=== PATIENT | male | born 1955 | race Caucasian/White ===

== ENCOUNTER 2020-06-10 19:21 | Emergency (ER) | payer OTHER ==
[2020-06-10 19:40] VITALS: BP 139/82
[2020-06-10] MEDS ORDERED: BUFFERED LIDOCAINE 10 ML SYRINGE SUBQ STA (20:47)
[2020-06-10] MEDS ORDERED: BACITRACIN ZINC OINT 1 PACKET TOP STA (20:49)
[2020-06-10] MEDS ORDERED: TETANUS/DIPHTHERIA/PERTUSSIS 0.5 ML SYRINGE IM ONE (20:50)
--- NOTE | 2020-06-10 20:51 | ED Physician Documentation ---
History of Present Illness - Stated complaint Stated Complaint: LT HAND LAC - Chief complaint Chief Complaint: Laceration - Additonal information Additional information: 64-year-old male presents to the emergency department for a stab laceration to the palm of his left hand when attempting to cut a avocado this evening. Unknown last tetanus. He has an approximately 1 cm stab/puncture wound. Bleeding is controlled with pressure. Patient is right-hand dominant. Review of Systems Constitutional: reports: Reviewed and negative Eyes: reports: Reviewed and negative Ears: reports: Reviewed and negative Nose: reports: Reviewed and negative Throat: reports: Reviewed and negative Cardiac: reports: Reviewed and negative Respiratory: reports: Reviewed and negative GI: reports: Reviewed and negative Skin: reports: Laceration (s) (left palm) PD PAST MEDICAL HISTORY - Allergies Allergies/Adverse Reactions: Allergies Allergy/AdvReac Type Severity Reaction Status Date / Time No Known Drug Allergies Allergy Verified 06/10/20 19:40 PD ED PE EXPANDED - General General: Alert, No acute distress - Extremities Extremities: Left hand (1 cm laceration palmar side left hand through the crease just below the ring finger. 2+ radial 1+ ulnar pulse. Brisk cap refill distally. Patient able to make a full fist and extend against resistance. No evidence of tendon injury.) Results - Vitals Vitals: Vital Signs - 24 hr 06/10/20 19:37 Temperature 36.2 C L Heart Rate 65 Respiratory 16 Rate Blood Pressure 139/82 H O2 Saturation 96 Oxygen O2 Source Room air Procedures - Laceration (location) left palm Length in cm: 1 Wound type: Linear Neurovascular status: Sensory intact, Motor intact, Vascular intact Tendon involvement: Tendon intact Anesthesia: Lidocaine 1% Wound preparation: Chlorhexadine, Irrigated copiously NS Skin layer closure: Size #-0 - enter number (4), Sutures - enter # (2) Other: Patient tolerated well, No complications, Neurovascular intact, Tetanus UTD PD MEDICAL DECISION MAKING - ED course Complexity details: d/w patient ED course: 64-year-old male presents emergency department for evaluation of a left palm laceration sustained when he was cutting a avocado earlier this evening. Tetanus was updated today. Wound easily closed with 2 sutures. no e/o tendon injury on exam. Routine wound care and return precautions discussed. Departure - Departure Disposition: 01 Home, Self Care Clinical Impression: Laceration of left palm Qualifiers: Encounter type: initial encounter Qualified Code(s): S61.412A - Laceration without foreign body of left hand, initial encounter Condition: Stable Record reviewed to determine appropriate education?: Yes Instructions: ED Laceration Hand Comments: Your sutures should be removed in 7 to 10 days. In 24 hours you may remove the dressing wash gently with warm soap and water, apply any antibiotic ointment and a simple bandage. Your tetanus is up-to-date. Please attempt to keep your wound clean and dry. Do not submerge it in dirty dishwater or bath water. Return to the emergency department if you have any concerns of infection such as redness, fevers milky drainage increased pain.
== END 2020-06-10 21:13 | disposition home or self-care (01) ==
LOC: ED 19:21
DX: S61.412A Laceration without foreign body of left hand, initial encounter (principal); W26.0XXA Contact with knife, initial encounter; Y93.G1 Activity, food preparation and clean up; Z23 Encounter for immunization
CPT/HCPCS: 12001; 90471; 90715; 99282; 99283; A9270